=== PATIENT | female | born 1975 | race Caucasian/White ===

== ENCOUNTER → 2018-01-01 | Outpatient (CLI) | payer OTHER ==
--- NOTE | 2018-01-01 18:42 | MAM ---
EXAM DESCRIPTION: 3D Diagnostic, Bilateral: Digital Mammography CLINICAL HISTORY: 42 yearsFemaleLEFT BREAST NODULE . Patient palpates a mass lower outer left breast. Baseline mammogram. No personal or family history of breast cancer. Childbirth. Premenstrual. No HRT. Lifetime risk of developing breast cancer (Tyrer-Cuzick model) percentage is 7.3. COMPARISON: Targeted left breast ultrasound as part of this examination. No prior reports available.. TECHNIQUE: Bilateral CC LM MLO projection full-field images, digital mammographic tomosynthesis technique. CAD not available. FINDINGS: The breast parenchymal density pattern is: Scattered areas of fibroglandular density. No skin thickening or nipple retraction skin marker visualized on the lower outer quadrant of the middle third of the left breast approximately 5:00 position. Bilateral solitary microcalcifications. No mammographic abnormality corresponding to the skin marker. No new focal, stellate mass or density, focal asymmetry , and no suspicious microcalcifications bilaterally. ULTRASOUND: Scanning of the lower outer quadrant of the left breast middle third of the breast. Emphasis at the 5:00 position and 5 cm from the nipple. Mostly fatty echotexture with minimal fibroglandular elements. No dominant focal solid mass or cyst. No large calcification or parenchymal edema. No overlying skin changes. Normal vascularity. IMPRESSION: Benign exam. BIRAD CATEGORY: 2 BENIGN FINDINGS. RECOMMENDATIONS: FOLLOW UP: Routine digital bilateral mammographic screening, one year interval from December 2017. The FINDINGS and the FOLLOW-UP plan were reviewed in person with the patient after the examination. Written communication explaining the IMPRESSION and FOLLOW-UP will be mailed to the patient and referring care provider. According to the [employer], yearly mammograms are recommended starting at age 40 and continuing as long as a woman is in good health. Any breast change noted on a breast self-exam should be reported promptly to the patient's healthcare provider. Breast MRI is recommended for women with an approximately 20-25% or greater lifetime risk of breast cancer, including women with a strong family history of breast or ovarian cancer and women who have been treated for Hodgkin's disease. A negative mammographic report should not delay tissue diagnosis in patients with significant clinical history or physical findings. Extremely dense breast tissue limits the sensitivity of digital mammography. Electronically signed by: Isaac Lovett MD 01/01/2018 6:41 PM [facility]
--- NOTE | 2018-01-01 18:45 | US ---
EXAM DESCRIPTION: Breast,Left: Ultrasound CLINICAL HISTORY: 42 yearsFemaleABN MAMMO. Palpable mass lower outer quadrant middle third left breast. COMPARISON: Digital diagnostic tomosynthesis bilateral breasts on the same date. Baseline Study at this facility. TECHNIQUE: Transcutaneous scanning of the left breast utilizing mcgrath-scale and Doppler modes. Scanning performed by the electro plater and Dr. Lovett. FINDINGS: Scanning of the lower outer quadrant of the left breast middle third of the breast. Emphasis at the 5:00 position and 5 cm from the nipple. Mostly fatty echotexture with minimal fibroglandular elements. No dominant focal solid mass or cyst. No large calcification or parenchymal edema. No overlying skin changes. Normal vascularity. IMPRESSION: 1. Bi-Rads Category 2: Benign. 2. Please refer to bilateral diagnostic digital breast tomosynthesis examination, and report on this visit. The FINDINGS and the FOLLOW-UP plan were reviewed in person with the patient after the examination. Written communication explaining the IMPRESSION and FOLLOW-UP will be mailed to the patient and referring care provider. Electronically signed by: Isaac Lovett MD 01/01/2018 6:44 PM [facility]
== END ==
LOC: MAMMO 13:00
PROVIDERS: ATTEND Family Medicine
DX: N63.20 Unspecified lump in the left breast, unspecified quadrant (principal)
CPT/HCPCS: 76641; 77066; G0279

== ENCOUNTER 2019-07-16 16:43 | Emergency (ER) | payer SELFPAY ==
--- NOTE | 2019-07-16 17:00 | ED.PDOC ---
History of Present Illness - General Stated Complaint: ankle injury Time Seen by Provider: 07/16/19 16:45 Source: patient, RN notes reviewed, Vital Signs reviewed - History of Present Illness Initial Comments: Patient is a 44-year-old female who presents the ED for left ankle injury. States 30 minutes ago she stepped off of a curb and twisted her left ankle. Has pain and swelling to lateral left ankle, but has been able to walk since it happened. She denies falling, hitting her head, neck or back pain or any other injuries. Patient declined anything for pain at this time. Allergies/Adverse Reactions: Allergies NO KNOWN ALLERGY Allergy (Verified 07/16/19 17:03) Review of Systems - Review of Systems Constitutional: Denies: chills, fever, weakness EENTM: Denies: blurred vision, nose congestion Respiratory: Denies: cough, short of breath Cardiology: Denies: chest pain, syncope Gastrointestinal/Abdominal: Denies: nausea, vomiting Genitourinary: States: no symptoms reported Musculoskeletal: States: see HPI Skin: States: no symptoms reported All other Systems: Reviewed and Negative Past Medical History (General) - Patient Medical History Hx Stroke: No Hx of COPD: Yes Hx Hypertension: Yes - takes no meds Hx Diabetes: No - Social History Hx Tobacco Use: No - Female History Hx Last Menstrual Period: 08/31/13 Patient : No Family Medical History - Family History Father Living Status: Still Living Hx Family Hypertension: Yes Physical Exam - Physical Exam General Appearance: Alert, Comfortable, No apparent distress Neck: full range of motion, supple Thigh/Hip: normal inspection, non-tender, no evidence of injury, normal ROM Knee: normal inspection, non-tender, no evidence of injury, normal ROM Ankle: other - Tender to palpation to the left lateral malleolus with mild edema in this area. There is no deformity. 2+ dorsalis pedis and posterior tibial p ulse. Progress - Progress Progress: 07/16/19 17:18 Patient presents to ED for left ankle injury. States she stepped off a curb and twisted her left ankle and has pain and swelling to the lateral left ankle. She has been ambulatory with pain since it occurred. Imaging shows no sign of fracture or dislocation at this time. Discussed with patient rest, ice, compression, elevation and use crutches as needed. Will follow up with PCP in 1 week if symptoms are not improving for repeat x-ray. - Results/Orders Results/Orders: LEFT ANKLE XRAY EXAM DESCRIPTION: Ankle,Left 3 Views CLINICAL HISTORY: injury COMPARISON: None. TECHNIQUE: 3 views left FINDINGS: Small Achilles enthesophyte is observed. The ankle mortise is intact. Mild intertarsal arthritis is seen. No fracturing is detected. IMPRESSION: Mild degenerative changes are observed. No fracturing is detected. Departure - Departure Clinical Impression: Left ankle sprain Qualifiers: Encounter type: initial encounter Involved ligament of ankle: other ligament Qualified Code(s): S93.492A - Sprain of other ligament of left ankle, initial encounter Time of Disposition: 17:20 Disposition: Discharge to Home or Self Care Condition: Good Departure Forms: ED Discharge - Pt. Copy, Patient Portal Self Enrollment Instructions: Ankle Sprain (DC) Diet: resume usual diet Activity: increase activity as tolerated Comments: Follow up with your PCP in 3-5 days if not improving
[2019-07-16 17:02] VITALS: TEMP 99.2; O2SAT 98
--- NOTE | 2019-07-16 17:06 | RAD ---
EXAM DESCRIPTION: Ankle,Left 3 Views CLINICAL HISTORY: injury COMPARISON: None. TECHNIQUE: 3 views left FINDINGS: Small Achilles enthesophyte is observed. The ankle mortise is intact. Mild intertarsal arthritis is seen. No fracturing is detected. IMPRESSION: Mild degenerative changes are observed. No fracturing is detected. Electronically signed by: Montana Stephens MD 07/16/2019 5:05 PM CDT
[2019-07-16 17:43] VITALS: BP 161/114
== END 2019-07-16 17:33 | disposition home or self-care (01) ==
LOC: ER 16:43
DX: S93.402A Sprain of unspecified ligament of left ankle, initial encounter (principal); X50.1XXA Overexertion from prolonged static or awkward postures, initial encounter; Y92.9 Unspecified place or not applicable